=== PATIENT | male | born 1970 | race Caucasian/White ===

== ENCOUNTER 2019-05-07 09:09 | Emergency (ER) | payer BC ==
[2019-05-07] MEDS ORDERED: Acetaminophen TAB* 325 MG PO ONE (09:44)
[2019-05-07] MEDS ORDERED: Ondansetron ODT TAB* 4 MG SL ONE (09:44)
--- NOTE | 2019-05-07 09:48 | ED ---
Head Injury - HPI Summary HPI Summary: A 48 y/o male presents to [facility] with a chief complaint of hitting his head on grass when he fell off of an 8ft ladder 5 days ago. He denies any LOC, vomiting , neck pain, back pain or abdominal pain, but notes that in the morning he has a headache and feels nauseous. He rates his pain as a 4/10 in severity. At triage he hit his "back first then hit his occipital brain". He denies being on any blood thinners or medications and says that he has no allergies. He denies smoking, drinking or drug use. - History Of Current Complaint Chief Complaint: EDHeadInjury Stated Complaint: FELL AND HIT HEAD FRI/WORSENING PAIN PER PT Time Seen by Provider: 05/07/19 09:38 Hx Obtained From: Patient Mechanism Of Injury: Other - fall from a ladder onto grass Onset/Duration: Started Days Ago, Still Present Severity Currently: Moderate Severity Initially: Moderate Pain Intensity: 4 Pain Scale Used: 0-10 Numeric Location of Head Injury: Occipital - Pt reportedly hit his "occipital brain" after hitting his back Location: Discrete At: - occipital Character: Unable to describe Aggravating Factor(s): Other: - nothing Alleviating Factor(s): Other: - nothing Associated Signs And Symptoms: Nausea - Allergies/Home Medications Allergies/Adverse Reactions: Allergies Allergy/AdvReac Type Severity Reaction Status Date / Time No Known Allergies Allergy Verified 05/07/19 09:15 Home Medications: Home Medications NK [No Home Medications Reported] 05/07/19 [History Confirmed 05/07/19] PMH/Surg Hx/FS Hx/Imm Hx Sensory History: Denies: Hx Contacts or Glasses Opthamlomology History: Denies: Hx Contacts or Glasses EENT History: Denies: Hx Deafness Infectious Disease History: No Infectious Disease History: Denies: Traveled Outside the [place] in Last 30 Days - Family History Known Family History: Positive: Diabetes - mother - Social History Alcohol Use: None Substance Use Type: Reports: None Hx Tobacco Use: No Smoking Status (MU): Never Smoked Tobacco Review of Systems Negative: Fever Positive: Nausea. Negative: Abdominal Pain, Vomiting Negative: Myalgia - back or neck pain Neurological: Other - negative: LOC Positive: Headache All Other Systems Reviewed And Are Negative: Yes Physical Exam - Summary Physical Exam Summary: GENERAL: Patient is a well-developed and nourished M who is lying comfortable in the stretcher. Patient is not in any acute respiratory distress. HEAD AND FACE: Normocephalic EYES: PERRLA, EOMI x 2. EARS: Hearing grossly intact. MOUTH: Oropharynx within normal limits. NECK: Supple, trachea is midline, no adenopathy, no JVD, no carotid bruit. CHEST: Symmetric, no tenderness at palpation LUNGS: Clear to auscultation bilaterally. No wheezing or crackles. CVS: Regular rate and rhythm, S1 and S2 present, no murmurs or gallops appreciated. ABDOMEN: Soft, non-tender. Bowel sounds are normal. No abnormal abdominal pulsations. EXTREMITIES: Full ROM in all major joints, no edema, no cyanosis or clubbing. NEURO: Alert and oriented x 3. No acute neurological deficits. Speech is normal and follows commands. SKIN: Dry and warm Triage Information Reviewed: Yes Vital Signs On Initial Exam: Initial Vitals Temp Pulse Resp BP Pulse Ox 96.9 F 58 16 133/94 99 05/07/19 09:11 05/07/19 09:11 05/07/19 09:11 05/07/19 09:11 05/07/19 09:11 Vital Signs Reviewed: Yes - Jeancarlos Coma Scale Best Eye Response: 4 - Spontaneous Best Motor Response: 6 - Obeys Commands Best Verbal Response: 5 - Oriented Coma Scale Total: 15 Diagnostics - Vital Signs Vital Signs Temp Pulse Resp BP Pulse Ox 05/07/19 09:11 96.9 F 58 16 133/94 99 - Laboratory Lab Statement: Any lab studies that have been ordered have been reviewed, and results considered in the medical decision making process. - CT Brain CT Interpretation Completed By: Radiologist Summary of CT Findings: NO EVIDENCE FOR ACUTE INTRACRANIAL ABNORMALITY. ED physician has reviewed this imaging report. Head Injury Course/Dx Course Of Treatment: A 48 y/o male presents to [facility] with a chief complaint of hitting his head on grass when he fell off of an 8ft ladder 5 days ago. The physical exam revealed no TTP along the C, T, or L-spine, ribcage or abdomen. In the ED course the patient was given Tylenol PO and Zofran SL. Brain CT impression: NO EVIDENCE FOR ACUTE INTRACRANIAL ABNORMALITY. The patient will be discharged. I discussed results with patient, and he reports feeling better. He is hemodynamically stable and safe for discharge. Strict return precautions given and he will otherwise follow up with his PCP. - Diagnoses Provider Diagnoses: Concussion Discharge - Sign-Out/Discharge Documenting (check all that apply): Patient Departure - DC Patient Received Moderate/Deep Sedation with Procedure: No - Discharge Plan Condition: Stable Disposition: HOME Patient Education Materials: Concussion (ED) Referrals: [facility] [Outside] Additional Instructions: Follow up with your primary care physician in 1-3 days. RETURN TO THE EMERGENCY DEPARTMENT FOR CHANGING OR WORSENING SYMPTOMS. - Billing Disposition and Condition Condition: STABLE Disposition: Home - Attestation Statements Document Initiated by Scribe: Yes Documenting Scribe: Willard Valiente Provider For Whom Scribe is Documenting (Include Credential): Katherine Nieves MD Scribe Attestation: Willard Najera scribed for Katherine Nieves MD on 05/07/19 at 1613. Scribe Documentation Reviewed: Yes Provider Attestation: The documentation as recorded by the Willard kong accurately reflects the service I personally performed and the decisions made by Curt gallego MD Status of Scribe Document: Viewed
[2019-05-07 12:11] VITALS: BP 106/79
== END 2019-05-07 12:11 | disposition home or self-care (01) ==
LOC: ED 09:09
DX: S06.0X9A Concussion with loss of consciousness of unspecified duration, initial encounter (principal); W11.XXXA Fall on and from ladder, initial encounter; Y92.9 Unspecified place or not applicable
CPT/HCPCS: 70450; 99283; A9270-GY